=== PATIENT | female | born 2000 | race Caucasian/White ===

== ENCOUNTER 2019-08-16 13:26 | Emergency (ER) | payer OTHER ==
[~2019-08-16] VITALS: Ht 165.1 cm; Wt 54.4 kg
--- NOTE | 2019-08-16 13:26 | NUR ---
Patient to bed 3 and gown. Side rails up.
--- NOTE | 2019-08-16 13:45 | NUR ---
Jeff Palafox [employer]UD[employer] PROFESSOR at bedside for examination.
[2019-08-16 14:00] VITALS: BP_SYST 135
[2019-08-16] MEDS ORDERED: IBUPROFEN 600 MG TABLET PO ONE (14:00)
--- NOTE | 2019-08-16 14:15 | NUR ---
Patient transported to radiology via WC, accompanied by rad staff
--- NOTE | 2019-08-16 14:25 | NUR ---
Returned from radiology, back to [facility].Patient to ER bed 3 to [facility] for evaluation. Side rails up. Report given to Abbie CUELLAR.
--- NOTE | 2019-08-16 14:38 | NUR ---
Patient brought in by mother with c/o left ankle pain after twisting it while playing basketball. Pain has been intermittent x 2 weeks and patient stated that it has been bothering her especially during physical activity. Patient stated pain level to be 4/10 at this time. Patient in no signs of distress.
--- NOTE | 2019-08-16 14:50 | NUR ---
Patient given written and verbal discharge instructions and verbalizes understanding. ER MD discussed with patient the results and treatment provided. Patient in stable condition. ID arm band removed. Rx of motrin given. Patient educated on pain management and to follow up with PMD. Pain Scale 4/10.Opportunity for questions provided and answered. Medication side effect fact sheet provided.
== END 2019-08-16 14:50 | disposition home or self-care (01) ==
LOC: SED 13:26
DX: S93.402A Sprain of unspecified ligament of left ankle, initial encounter (principal); R03.0 Elevated blood-pressure reading, without diagnosis of hypertension; X50.0XXA Overexertion from strenuous movement or load, initial encounter; Y93.89 Activity, other specified; Y92.89 Other specified places as the place of occurrence of the external cause; Y99.8 Other external cause status
CPT/HCPCS: 99283

== ENCOUNTER 2021-07-11 22:54 | Emergency (ER) | payer SELFPAY ==
[~2021-07-11] VITALS: Ht 167.6 cm; Wt 38.6 kg
[2021-07-11 22:59] VITALS: BP_SYST 142
[2021-07-12 02:18] VITALS: BP_SYST 111
== END 2021-07-12 02:19 | disposition home or self-care (01) ==
LOC: SED 22:54
DX: S01.111A Laceration without foreign body of right eyelid and periocular area, initial encounter (principal); W51.XXXA Accidental striking against or bumped into by another person, initial encounter; Y93.89 Activity, other specified; Y92.89 Other specified places as the place of occurrence of the external cause; Y99.8 Other external cause status
CPT/HCPCS: 99282